=== PATIENT | male | born 1985 | race Two or more races ===

== ENCOUNTER 2019-06-06 22:33 | Emergency (ER) | payer MEDICAID, OTHER ==
[~2019-06-06] VITALS: Ht 188 cm; Wt 87.9 kg
--- NOTE | 2019-06-06 23:10 | NUR ---
FIRST CONTACT WITH PT. PT SITTING UP IN [place] NOT[place]. AWAKE/ALERT AND TALKATIVE WITH CLEAR SPEECH. PT REPORTS TWO EPISODES OF DIZZINESS TODAY, ONE WHILE DRIVING AND THE OTHER WHILE LAYING DOWN TO GO TO BED. NO CLEAR PRECEDING EVENTS, AGGRAVATING OR RELIEVING FACTORS . DENIES CP/SOB/N/V/RECENT ILLNESS. DENIES MEDICAL HX/DRUG USE. BP/SPO2/ECG MONITOIGN IN PLACE. NSR ON MONITOR. VS WNL. ERP AT BEDSIDE FOR INITIAL ASSESSMENT. Addendum: 06/06/19 at 2314 by LWEGENER GROSS NEURO INTACT. FACE SYMMETRICAL, SPEECH CLEAR, +STRENGTH X4. DENIES WEAKNESS/DIZZINESS/CHANGES IN SPEECH OR VISION/ROSARIO.
[2019-06-06 23:31] LABS: BASOPHILS # (AUTO) 0.04 x10^3/uL (0-0.1); BASOPHILS % (AUTO) 1 % (0-1); EOSINOPHILS # (AUTO) 0.17 x10^3/uL (0-0.4); EOSINOPHILS % (AUTO) 2 % (1-7); LYMPHOCYTES # (AUTO) 2.14 x10^3/uL (1-3.4); LYMPHOCYTES % (AUTO) 27 % (22-44); MD NO; MEAN CORPUSCULAR HEMOGLOBIN 28.9 pg (27.5-34.5); MEAN CORPUSCULAR HGB CONC 33.5 g/dL (33.2-36.2); MEAN CORPUSCULAR VOLUME 86.3 fL (81-97); MEAN PLATELET VOLUME 7.8 fL (7.4-10.4); MONOCYTES # (AUTO) 0.38 x10^3/uL (0.2-0.8); MONOCYTES % (AUTO) 5 % (2-9); NEUTROPHILS # (AUTO) 5.31 x10^3/uL (1.8-6.8); NEUTROPHILS % (AUTO) 66 % (42-75); PLATELET COUNT 210 x10^3/uL (130-400); RED BLOOD COUNT 4.65 x10^6/uL (4.38-5.82); RED CELL DISTRIBUTION WIDTH 13.1 % (9.4-14.8)
[2019-06-06 23:43] LABS: ALBUMIN 3.9 g/dL (3.4-5.0); ANION GAP 4 mmol/L (5-15); CALCIUM 8.7 mg/dL (8.5-10.1); CHLORIDE 107 mmol/L (98-107)
[2019-06-06 23:57] VITALS: BP 132/78
--- NOTE | 2019-06-07 00:36 | NUR ---
DC EDUCATION PROVIDED, PT DEMONSTRATES UNDERSTANDING. PT AMBULATED STEADILY TO DC WITH RN AND FAMILY
== END 2019-06-07 00:38 | disposition home or self-care (01) ==
LOC: ED 06-07 00:35
DX: R42 Dizziness and giddiness (principal); R94.31 Abnormal electrocardiogram [ECG] [EKG]
CPT/HCPCS: 36415; 80048; 82040; 84443; 85025; 93005; 99284

== ENCOUNTER 2019-07-09 17:33 | Emergency (ER) | payer MEDICAID ==
[~2019-07-09] VITALS: Ht 188 cm; Wt 86.7 kg
--- NOTE | 2019-07-09 18:22 | NUR ---
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
--- NOTE | 2019-07-09 18:34 | NUR ---
FELL GETTING OUT OF SHOWER HITTING LEFT SIDE OF HEAD ON RIM OF BATHTUB. DENIES LOC. PT ADDITIONALLY INITIALLY FEELING LEFT FOOT PAIN. PT STATES HE FELT ANXIOUS AFTERWARDS AND HIS WHOLE BODY BECAME TINGLY.
--- NOTE | 2019-07-09 19:03 | NUR ---
REPORT FROM TREVOR FIGUEROA. PT RESTING WITH NO NEEDS AT THIS TIME. CALL LIGHT IN REACH
[2019-07-09] MEDS ORDERED: ACETAMINOPHEN 500 MG TABLET PO ONE (19:30)
[2019-07-09] MEDS ORDERED: ACETAMINOPHEN 500 MG TABLET ONE (19:54)
--- NOTE | 2019-07-09 20:22 | NUR ---
PT REFUSED TYLENOL AT THIS TIME. PT AT CT
[2019-07-09 20:40] VITALS: BP 133/78
--- NOTE | 2019-07-09 21:30 | NUR ---
Patient given discharge instructions and they have confirmed that they understand the instructions. Patient ambulatory with steady gait.
== END 2019-07-09 21:31 | disposition home or self-care (01) ==
LOC: ED 19:42
DX: S09.90XA Unspecified injury of head, initial encounter (principal); R07.89 Other chest pain; G93.0 Cerebral cysts; R20.2 Paresthesia of skin; W01.0XXA Fall on same level from slipping, tripping and stumbling without subsequent striking against object, initial encounter; Y93.89 Activity, other specified; Y92.098 Other place in other non-institutional residence as the place of occurrence of the external cause; Y99.8 Other external cause status
CPT/HCPCS: 70450; 93005; 99284